=== PATIENT | female | born 1950 | race African-American/Black ===

== ENCOUNTER → 2019-07-08 | Day surgery (SDC) | payer OTHER, BC ==
[2019-07-04 10:22] VITALS: BMI 22.8
[~2019-07-08] MED LIST: LIDOCAINE HCL/PF 2% SDV 5ML VIAL ONE; PROPOFOL 20 ML ONE
[2019-07-08 08:17] VITALS: TEMP 98
[2019-07-08 09:23] VITALS: BP 108/61; PULSE 61
== END | disposition home or self-care (01) ==
LOC: FASU-ENDO 07:37
PROVIDERS: ATTEND Internal Medicine Gastroenterology
PROC: 0DJD8ZZ Inspection of Lower Intestinal Tract, Via Natural or Artificial Opening Endoscopic (ICD-10-PCS; principal; 2019-07-08 08:21)
DX: Z85.038 Personal history of other malignant neoplasm of large intestine (principal); Z86.010 Personal history of colon polyps

== ENCOUNTER 2021-01-11 08:36 | Day surgery (SDC) | payer OTHER, BC ==
[2021-01-06 17:25] VITALS: BMI 25.0
[2021-01-11 10:40] VITALS: TEMP 97
[2021-01-11 11:07] VITALS: BP 124/80; PULSE 83
== END 2021-01-11 11:07 | disposition home or self-care (01) ==
LOC: FASU-ENDO 08:36
PROVIDERS: ATTEND Internal Medicine Gastroenterology
PROC: 0DJD8ZZ Inspection of Lower Intestinal Tract, Via Natural or Artificial Opening Endoscopic (ICD-10-PCS; principal; 2021-01-11 10:01)
DX: Z12.11 Encounter for screening for malignant neoplasm of colon (principal); Z85.038 Personal history of other malignant neoplasm of large intestine; Z86.010 Personal history of colon polyps; Z98.0 Intestinal bypass and anastomosis status

== ENCOUNTER 2024-01-22 10:00 | Day surgery (SDC) | payer OTHER, BC ==
[2024-01-19 11:54] VITALS: BMI 23.8
[2024-01-22 12:16] VITALS: TEMP 97.7
[2024-01-22 12:22] VITALS: BP 110/68; PULSE 68; RESP 19
== END 2024-01-22 13:26 | disposition home or self-care (01) ==
LOC: FASU-ENDO 10:00
PROVIDERS: ATTEND Internal Medicine Gastroenterology
PROC: 0DB98ZX Excision of Duodenum, Via Natural or Artificial Opening Endoscopic, Diagnostic (ICD-10-PCS; 2024-01-22)
PROC: 0DB68ZX Excision of Stomach, Via Natural or Artificial Opening Endoscopic, Diagnostic (ICD-10-PCS; 2024-01-22)
PROC: 0DJD8ZZ Inspection of Lower Intestinal Tract, Via Natural or Artificial Opening Endoscopic (ICD-10-PCS; principal; 2024-01-22 11:31)
DX: Z12.11 Encounter for screening for malignant neoplasm of colon (principal); K29.50 Unspecified chronic gastritis without bleeding; Z85.038 Personal history of other malignant neoplasm of large intestine; Z86.010 Personal history of colon polyps; Z98.0 Intestinal bypass and anastomosis status
CPT/HCPCS: 43239; G0105; 88305-TC; 88342-TC

== ENCOUNTER → 2025-06-25 | Day surgery (SDC) | payer OTHER, BC ==
[2025-06-24 13:19] VITALS: BMI 24.6
[~2025-06-25] MED LIST changes: +PROPOFOL 160 ML ONE; -PROPOFOL 20 ML ONE
[2025-06-25 08:39] VITALS: PULSE 62; TEMP 98
[2025-06-25 08:41] VITALS: BP 103/57; RESP 18
== END | disposition home or self-care (01) ==
LOC: FASU-ENDO 07:32
PROVIDERS: ATTEND Internal Medicine Gastroenterology
PROC: 0DB78ZX Excision of Stomach, Pylorus, Via Natural or Artificial Opening Endoscopic, Diagnostic (ICD-10-PCS; 2025-06-25)
PROC: 0DB68ZX Excision of Stomach, Via Natural or Artificial Opening Endoscopic, Diagnostic (ICD-10-PCS; 2025-06-25)
PROC: 0DB98ZX Excision of Duodenum, Via Natural or Artificial Opening Endoscopic, Diagnostic (ICD-10-PCS; principal; 2025-06-25 08:15)
DX: K31.A11 Gastric intestinal metaplasia without dysplasia, involving the antrum (principal); K31.89 Other diseases of stomach and duodenum
CPT/HCPCS: 88305-TC; 88342-TC